=== PATIENT | female | born 1990 | race Caucasian/White ===

== ENCOUNTER → 2017-02-21 | Outpatient (REF) | payer OTHER ==
[2017-02-21 16:43] LABS: FREE T4 1.11 NG/DL (0.76-1.46)
== END ==
LOC: M LABDRAW1 11:19
PROVIDERS: ATTEND Physician Assistant Medical
DX: E55.9 Vitamin D deficiency, unspecified (principal)

== ENCOUNTER → 2017-12-05 | Outpatient (REF) | payer OTHER ==
[2017-12-05 12:49] LABS: TOTAL 25(OH) VITAMIN D 33.6 NG/ML (30.0-100.0)
[2017-12-05 12:56] LABS: FREE T4 0.77 NG/DL (0.76-1.46)
== END ==
LOC: M LABDRAW1 10:29
DX: E55.9 Vitamin D deficiency, unspecified (principal); E89.0 Postprocedural hypothyroidism

== ENCOUNTER → 2018-04-03 | Outpatient (CLI) | payer OTHER ==
[2018-04-03 17:03] LABS: HCG, SERUM QUANTITATIVE 2 MIU/ML
== END ==
LOC: M LAB 16:00
DX: E28.2 Polycystic ovarian syndrome (principal)
CPT/HCPCS: 84702

== ENCOUNTER → 2019-06-18 | Outpatient (CLI) | payer OTHER ==
[2019-06-18 12:09] LABS: FREE T4 1.26 NG/DL (0.76-1.46); THYROID STIMULATING HORMONE 2.12 uIU/ML (0.358-3.740)
[2019-06-18 13:12] LABS: TOTAL 25(OH) VITAMIN D 24.4 NG/ML (30.0-100.0)
== END ==
LOC: M LAB 11:01
PROVIDERS: ATTEND Nurse Practitioner Family
DX: E89.0 Postprocedural hypothyroidism (principal)

== ENCOUNTER → 2019-06-24 | Outpatient (CLI) | payer OTHER ==
[2019-06-24 07:44] LABS: HCG, SERUM QUANTITATIVE < 1.0 MIU/ML
--- NOTE | 2019-06-24 07:52 | REPVR ---
PROCEDURE INFORMATION: Exam: US Pelvis, Transvaginal Exam date and time: 06/24/2019 7:27 AM Age: 28 years old Clinical indication: Condition or disease; Other: Infertility TECHNIQUE: Imaging protocol: Real-time transvaginal pelvic ultrasound with image documentation. Transvaginal imaging was used for better evaluation of the endometrium and adnexa. COMPARISON: No relevant prior studies available. FINDINGS: Uterus/cervix: Uterus measures 7.8 x 4.3 x 5.2 cm. Endometrial stripe measures 6.1 mm. No uterine masses. Right adnexa: Right ovary measures 2.9 x 2.1 x 2.2 cm. Normal size and number of follicles. No masses. Normal vascular flow. Left adnexa: Left ovary measures 2.3 x 1.9 x 1.5 cm. Normal size and number of follicles. No masses. Normal vascular flow. Free fluid: No free fluid. IMPRESSION: Unremarkable pelvic ultrasound. Electronically signed by: Alexi Singletary On 06/24/2019 07:52:05 AM
[2019-06-24 10:58] LABS: ESTRADIOL < 19.0 PG/ML
== END ==
LOC: M RAD 06:46
PROVIDERS: ATTEND Obstetrics & Gynecology Reproductive Endocrinology
DX: Z31.41 Encounter for fertility testing (principal)

== ENCOUNTER → 2019-06-28 | Outpatient (CLI) | payer OTHER ==
--- NOTE | 2019-06-28 07:58 | REPVR ---
PROCEDURE INFORMATION: Exam: US Pelvis, Transvaginal Exam date and time: 06/28/19 (7:09am) Age: 28 years old Clinical indication: Screening exam. Follicle study. Infertility. TECHNIQUE: Imaging protocol: Real-time transvaginal pelvic ultrasound with image documentation. Transvaginal imaging was used for better evaluation of the endometrium and adnexa. COMPARISON: US PELVIS of 06/24/19 FINDINGS: The LMP is not provided. The uterus is normal in size and texture, measuring 6.7 x 3.8 x 5.0 cm in dimensions. No uterine mass is seen. The endometrium measures 5.4 mm in thickness. The right ovary measures 3.6 x 2.2 x 2.4 cm in size. The left ovary measures 2.1 x 1.6 x 1.9 cm in size. Multiple small bilateral ovarian follicles are present --- Maximal dimensions for the largest right ovarian follicles: 7-9 mm Maximal dimensions for the largest left ovarian follicles: 6-7 mm No free pelvic fluid is seen. No solid adnexal masses. IMPRESSION: No acute pathology. No solid pelvic mass. No free pelvic fluid. Multiple small bilateral ovarian follicles (see measurements above). Electronically signed by: Krystle Doyle On 06/28/2019 07:58:13 AM
[2019-06-28 10:54] LABS: ESTRADIOL 34.5 PG/ML; LUTEINIZING HORMONE 3.7 mIU/mL
== END ==
LOC: M RAD 06:39
PROVIDERS: ATTEND Obstetrics & Gynecology Reproductive Endocrinology
DX: Z31.41 Encounter for fertility testing (principal)

== ENCOUNTER → 2019-06-30 | Outpatient (CLI) | payer OTHER ==
[2019-06-30 09:22] LABS: ESTRADIOL 52.7 PG/ML
--- NOTE | 2019-06-30 09:50 | REP ---
Clinical: Infertility. Comparison: 06/28/2019. Technique: Transvaginal ultrasound examination Findings: Anteverted uterus measures 7.3 x 4.0 x 5.5 cm. Endometrial complex measures 5.9 mm thickness with trilaminar appearance. Right ovary measures 3.7 x 2.5 x 2.6 cm and includes 10 x 9 millimeter follicle and approximately 20 sub centimeter follicles between 3 and 9 mm.. Left ovary measures 2.9 x 1.7 x 2.1 cm and includes approximately 15 sub centimeter follicles between 3 and 7 mm. No pelvic free fluid. Impression: Primarily sub centimeter follicles noted bilaterally. Electronically Signed by Yevgeniy Riojas MD 06/30/2019 07:54 A
== END ==
LOC: M RAD 06:37
PROVIDERS: ATTEND Obstetrics & Gynecology Reproductive Endocrinology
DX: Z31.41 Encounter for fertility testing (principal)

== ENCOUNTER → 2019-07-02 | Outpatient (CLI) | payer OTHER ==
--- NOTE | 2019-07-02 09:13 | REP ---
Clinical: Infertility. Technique: Transvaginal ultrasound examination. Findings: Normal anteverted uterus measures 7.8 x 3.9 x 5.4 cm. The endometrial complex measures 7.1 mm thickness and has a relatively normal trilaminar appearance. No pelvic free fluid. Right ovary measures 4.3 x 2.5 x 2.8 cm and includes 10 x 6 mm and 10 x 9 mm follicles along with approximately 15 sub centimeter follicles between 2 and 8 mm. Left ovary measures 3.4 x 2.3 x 2.7 cm and includes 12 x 9 mm follicle along with approximately 12 sub centimeter follicles between 3 and 9 mm. Impression: Primarily sub centimeter follicles as noted above. Electronically Signed by Yevgeniy Riojas MD 07/02/2019 09:04 A
[2019-07-02 10:53] LABS: ESTRADIOL 41.4 PG/ML; LUTEINIZING HORMONE 4.1 mIU/mL
== END ==
LOC: M RAD 07:53
PROVIDERS: ATTEND Obstetrics & Gynecology Reproductive Endocrinology
DX: N97.9 Female infertility, unspecified (principal)

== ENCOUNTER → 2019-07-05 | Outpatient (CLI) | payer OTHER ==
[2019-07-05 09:41] LABS: ESTRADIOL 120.4 PG/ML; LUTEINIZING HORMONE 3.3 mIU/mL; PROGESTERONE 0.52 NG/ML
== END ==
LOC: M LAB 07:19
PROVIDERS: ATTEND Obstetrics & Gynecology Reproductive Endocrinology
DX: Z31.41 Encounter for fertility testing (principal)

== ENCOUNTER → 2019-07-07 | Outpatient (CLI) | payer OTHER ==
--- NOTE | 2019-07-07 08:35 | REP ---
Transvaginal pelvic sonography: History: Infertility study. Ovarian follicle evaluation. Findings: Uterine dimensions are normal 8.2 x 3.6 x 5.5 cm. Endometrial echo is at 1.2 cm thick. There is a small quantity of fluid in the endocervical canal. No focal uterine mass is seen. Overall transvaginal dimensions of the right ovary today are 4.4 x 2.9 x 3.3 cm. There are six follicles in the right ovary measuring greater than a centimeter as follows: 1.1 x 0.8, 1.3 x 0.8, 1.7 x 1.5, 1.2 x 0.5, 1.1 x 0.8, and 1.1 x 0.6 cm. In addition, the right ovary contains 22 follicles ranging in size from 0.3 0.9 cm. The overall dimensions of the left ovary today are 2.5 x 1.7 x 2.3 cm. There are two follicles greater than a centimeter in the left ovary as follows: 1.3 x 0.9 and 1.4 x 0.8 cm. In addition, the left ovary contains seven follicles ranging in size from 0.4-0.9 cm. Impression: Ovarian follicle study as above. Electronically Signed by Serge Jin MD 07/07/2019 08:26 A
[2019-07-07 10:31] LABS: ESTRADIOL 201.6 PG/ML; LUTEINIZING HORMONE 6.8 mIU/mL
== END ==
LOC: M RAD 07:14
PROVIDERS: ATTEND Obstetrics & Gynecology Reproductive Endocrinology
DX: Z31.41 Encounter for fertility testing (principal)

== ENCOUNTER → 2019-07-24 | Outpatient (CLI) | payer OTHER ==
[2019-07-24 10:34] LABS: HCG, SERUM QUANTITATIVE < 1.0 MIU/ML
[2019-07-24 13:47] LABS: ESTRADIOL < 19.0 PG/ML
== END ==
LOC: M WUC 08:17
PROVIDERS: ATTEND Obstetrics & Gynecology Reproductive Endocrinology
DX: Z31.41 Encounter for fertility testing (principal)

== ENCOUNTER → 2019-07-28 | Outpatient (CLI) | payer OTHER ==
[2019-07-28 09:21] LABS: ESTRADIOL 28.3 PG/ML; LUTEINIZING HORMONE 3.3 mIU/mL
--- NOTE | 2019-07-28 15:33 | REP ---
Transvaginal pelvic sonography: History: Fertility testing. Follicle study. Findings: Transvaginal sonography is performed. Uterine dimensions are 7.6 x 3.8 x 5.5 cm. Endometrial stripe is 0.7 cm. Nabothian cysts are noted. No free fluid or focal uterine mass is seen. Overall dimensions of the right ovary are 4.5 x 2.3 x 3.1 cm. There are five follicles in the right ovary measuring over a centimeter as follows: 1.3 x 0.4, 1.4 x 0.8, 1.1 x 0.8, 2.0 x 1.3, and 1.4 x 1.4 cm. In addition, the right ovary contains 17 follicles ranging in size from 0.2-0.8 cm. The overall dimensions of the left ovary are 3.6 x 2.6 x 2.0 cm. It contains a 1.2 x 1.0 cm follicle. No other follicles greater than a centimeter. There are 19 follicles in the left ovary ranging in size from 0.3-0.8 cm. Impression: Ovarian follicle study as above. Electronically Signed by Serge Jin MD 07/28/2019 08:15 A
== END ==
LOC: M RAD 06:56
PROVIDERS: ATTEND Obstetrics & Gynecology Reproductive Endocrinology
DX: Z31.41 Encounter for fertility testing (principal)

== ENCOUNTER → 2019-12-09 | Outpatient (CLI) | payer OTHER ==
[2020-01-16 10:51] LABS: PROGESTERONE 10.22 NG/ML
== END ==
LOC: M LAB 17:10
PROVIDERS: ATTEND Obstetrics & Gynecology Reproductive Endocrinology
DX: Z31.41 Encounter for fertility testing (principal)

== ENCOUNTER → 2020-01-18 | Outpatient (REF) | payer OTHER ==
[2020-01-18 15:06] LABS: BASO % 0.2 % (0.0-1.0); EOS % 0.2 % (0.0-3.0); HEMATOCRIT 41.2 % (36.0-47.0); HEMOGLOBIN 13.5 g/dl (12.0-15.5); LYMPH # 2.4 10^3/uL (1.5-5.0); LYMPH % 22.9 % (24.0-44.0); MEAN CORPUSCULAR HEMOGLOBIN 28.4 pg (27.0-33.0); MEAN CORPUSCULAR HGB CONC 32.8 g/dl (32.0-36.5); MEAN CORPUSCULAR VOLUME 86.6 fl (80.0-96.0); MONO # 0.6 10^3/uL (0.0-0.8); MONO % 5.5 % (0.0-5.0); NEUTROPHILS # 7.3 10^3/uL (1.5-8.5); NEUTROPHILS % 70.8 % (36.0-66.0); PLATELET COUNT, AUTOMATED 270 10^3/uL (150-450); RED BLOOD COUNT 4.76 10^6/uL (4.00-5.40); WHITE BLOOD COUNT 10.3 10^3/uL (4.0-10.0)
[2020-01-18 15:32] LABS: FREE T4 1.08 NG/DL (0.76-1.46)
[2020-01-18 15:46] LABS: HEPATITIS B SURFACE ANTIGEN NEGATIVE (NEGATIVE)
[2020-01-18 16:14] LABS: HEPATITIS C VIRUS ABY INDEX 0.1 INDEX (<0.8)
[2020-01-18 16:15] LABS: HIV 1&2 SCREEN CENTAUR NEGATIVE (NEGATIVE)
[2020-01-18 16:46] LABS: CHLAMYDIA DNA AMPLIFICATION NEGATIVE (NEGATIVE); GC DNA AMPLIFICATION NEGATIVE (NEGATIVE)
== END ==
LOC: M SFHCWAGY 13:33
PROVIDERS: ATTEND Specialist
DX: Z34.81 Encounter for supervision of other normal pregnancy, first trimester (principal); Z3A.00 Weeks of gestation of pregnancy not specified

== ENCOUNTER → 2020-01-24 | Outpatient (CLI) | payer OTHER | LOC: M PLALAB 10:05 | PROVIDERS: ATTEND Specialist | DX: Z36.89 Encounter for other specified antenatal screening (principal) ==

== ENCOUNTER → 2020-03-22 | Outpatient (CLI) | payer OTHER ==
--- NOTE | 2020-03-23 08:19 | REP ---
INDICATION: F/U ANATOMY COMPARISON: Prior report examination from outside institution. TECHNIQUE: Transabdominal obstetrical ultrasound with color Doppler evaluation. FINDINGS: Examination demonstrates a single live intrauterine in transverse (head to maternal right) presentation. motion is identified by technologist. Placenta is noted posterior and grade 0 without evidence for placenta previa or abruption. Amniotic fluid volume is normal. Cervix measures 4.0 cm in length and appears closed.. Gestational age by LMP 20 weeks 1 day with LORA 08/08/2020. Gestational age by current measurements 20 weeks 1 day with LORA 08/08/2020. FHR equals 142 beats per minute. Estimated weight 333 grams (47thpercentile). Anatomical assessment demonstrates normal structures including cranium, cavum, cerebellum/posterior fossa, lungs, diaphragm, stomach, cord insertion/three-vessel cord, kidneys/bladder, spine, and extremities. Small choroid plexus cyst measuring up to 5 mm diameter. IMPRESSION: Continued limited evaluation of the facial features. Current examination demonstrates small choroid plexus cyst. <Electronically signed by Yevgeniy Riojas > 03/23/20 [id number]
== END ==
LOC: M WHC 13:58
PROVIDERS: ATTEND Advanced Practice Midwife
DX: Z36.2 Encounter for other antenatal screening follow-up (principal); Z3A.19 19 weeks gestation of pregnancy

== ENCOUNTER → 2020-04-24 | Outpatient (CLI) | payer OTHER ==
--- NOTE | 2020-04-24 16:28 | REP ---
INDICATION: F/U ANATOMY. COMPARISON: 03/22/2020. TECHNIQUE: Real-time sonographic evaluation of the gravid uterus performed. FINDINGS: Estimated gestational age is24 weeks 6 days, EDC 08/08/2020. Today's measurements indicate appropriate growth. Presentation: Transverse head maternal left side Placenta posterior, grade 0, without evidence of placenta previa. heart rate is recorded at 147 beats per minute. Amniotic fluid is subjectively normal. Closed cervical length is measured at 3.6 cm. Biometry chart: BPD: 61 mm, weeks 5 days, 49th percentile. HC: 227 mm, 24 weeks 5 days, 49th percentile AC: 202 mm, 24 weeks 6 days, 50th percentile Femur length: 44 mm, 24 weeks 3 days, 43rd percentile HC to AC ratio: 1.13, normal range 1.02-1.21. Estimated weight: 723g, 35th percentile. And today's exam the previously noted choroid plexus cyst appears to have resolved. Facial structures are visualized and are grossly unremarkable. Once again four-chamber heart and ventricular outflow tracts are not well seen due to position. Other anatomical structures were seen on the prior study. IMPRESSION: Viable single intrauterine gestation as above. <Electronically signed by Jean Pierre Valle > 04/24/20 [id number]
== END ==
LOC: M WHC 14:08
PROVIDERS: ATTEND Advanced Practice Midwife
DX: Z36.89 Encounter for other specified antenatal screening (principal); Z3A.24 24 weeks gestation of pregnancy

== ENCOUNTER → 2020-05-11 | Outpatient (REF) | payer OTHER ==
[2020-05-11 13:23] LABS: HEMATOCRIT 35.1 % (36.0-47.0); HEMOGLOBIN 10.9 g/dl (12.0-15.5); MEAN CORPUSCULAR HEMOGLOBIN 26.8 pg (27.0-33.0); MEAN CORPUSCULAR HGB CONC 31.1 g/dl (32.0-36.5); MEAN CORPUSCULAR VOLUME 86.5 fl (80.0-96.0); PLATELET COUNT, AUTOMATED 236 10^3/uL (150-450); RED BLOOD COUNT 4.06 10^6/uL (4.00-5.40)
[2020-05-11 13:51] LABS: ALT/SGPT 19 U/L (12-78); BILIRUBIN,TOTAL 0.2 MG/DL (0.2-1.0); CREATININE FOR GFR 0.64 MG/DL (0.55-1.30); GLOMERULAR FILTRATION RATE > 60.0 (>60); LDH LACTATE DEHYDROGENASE 158 U/L (84-246); URIC ACID 4.4 MG/DL (2.6-6.0)
[2020-05-11 13:52] LABS: CREATININE,RANDOM URINE 68.1 MG/DL; TOTAL PROTEIN,RANDOM URINE 6.9 MG/DL (0.0-12.0)
== END ==
LOC: M PLALAB 09:00
PROVIDERS: ATTEND Advanced Practice Midwife
DX: Z34.82 Encounter for supervision of other normal pregnancy, second trimester (principal); Z3A.23 23 weeks gestation of pregnancy
CPT/HCPCS: 36415; 82247; 82565; 82570; 82950; 83615; 84156; 84450; 84460; 84550; 85027; 86850; 86900; 86901; G0463

== ENCOUNTER → 2020-05-30 | Outpatient (CLI) | payer OTHER ==
--- NOTE | 2020-05-31 08:56 | REP ---
INDICATION: F/U ANATOMY COMPARISON: 04/24/2020 TECHNIQUE: Transabdominal obstetrical ultrasound with color Doppler evaluation. FINDINGS: Examination demonstrates a single live intrauterine in cephalic presentation. motion is identified by technologist. Placenta is noted posterior and grade 2 without evidence for placenta previa or abruption. Amniotic fluid volume is normal. Cervix appears closed. KODY: 19.1 cm. Gestational age by LMP 30 weeks 0 days with LORA 08/08/2020. Gestational age by current measurements 30 weeks 4 days with LORA 08/04/2020. FHR equals 129 beats per minute. Estimated weight 1596 grams (59thpercentile). Anatomical assessment demonstrates normal four-chamber heart and cardiac ventricular outflow tract. IMPRESSION: Single live intrauterine in cephalic presentation demonstrating appropriate estimated weight and growth. In conjunction with prior examination anatomical assessment is complete and normal. <Electronically signed by Yevgeniy Riojas > 05/31/20 [id number]
== END ==
LOC: M WHC 13:28
PROVIDERS: ATTEND Obstetrics & Gynecology
DX: Z34.93 Encounter for supervision of normal pregnancy, unspecified, third trimester (principal); Z3A.30 30 weeks gestation of pregnancy
CPT/HCPCS: 76816; G0463

== ENCOUNTER → 2020-07-14 | Outpatient (REF) | payer OTHER | LOC: M PLALAB 13:06 | PROVIDERS: ATTEND Obstetrics & Gynecology | DX: Z34.93 Encounter for supervision of normal pregnancy, unspecified, third trimester (principal); Z3A.36 36 weeks gestation of pregnancy; Z53.9 Procedure and treatment not carried out, unspecified reason ==

== ENCOUNTER → 2020-07-17 | Outpatient (REF) | payer OTHER ==
[~2020-07-17] MED LIST: DOK1CAP7 PO; IBUP80TA PO; IRON27TA2 PO; LEVO150T7 PO; METF-877 PO; PERCOCET PO; PREN1CHW PO; VITAD400CA FT
== END ==
LOC: M SFHCWAGY 13:36
PROVIDERS: ATTEND Obstetrics & Gynecology
DX: Z36.89 Encounter for other specified antenatal screening (principal); Z3A.36 36 weeks gestation of pregnancy
CPT/HCPCS: 87081; 87186; G0463

== ENCOUNTER → 2020-07-17 | Outpatient (CLI) | payer OTHER | LOC: M WHC 10:18 | PROVIDERS: ATTEND Obstetrics & Gynecology | DX: Z53.9 Procedure and treatment not carried out, unspecified reason (principal) ==

== ENCOUNTER → 2020-08-01 | Outpatient (CLI) | payer OTHER ==
--- NOTE | 2020-08-01 16:01 | REP ---
INDICATION: HYPOTHYROID,GROWTH. COMPARISON: 05/30/2020. TECHNIQUE: Multiple sonographic images of the gravid uterus. FINDINGS: There is a single intrauterine gestation in a transverse lie with the head to the maternal right. 1. The placenta is fundal with grade 3 maturity. There is no previa. The umbilical cord inserts centrally onto the placenta. There is a normal 3 vessel cord. 2. heart rate is 150 beats per minute. Amniotic fluid index is 23.2. Normal is 7.2-22.7. Cervix measures 4.2 cm. 3. The composite ultrasound gestational age by today's study is 38 weeks 5 days with an LORA of 08/10/2020. Gestational age by the 1st ultrasound is 39 weeks 0 days with an LORA of 08/08/2020. Gestational age by LMP is 39 weeks 0 days with an LORA of 08/08/2020. 4. Estimated weight is 3640 g/8 lb, 0 oz. This is the 69th percentile for 39 weeks 0 days. IMPRESSION: size and dates as discussed above. <Electronically signed by Jean Pierre Silvestre > 08/01/20 [id number]
== END ==
LOC: M WHC 12:50
PROVIDERS: ATTEND Obstetrics & Gynecology
DX: O99.213 Obesity complicating pregnancy, third trimester (principal); Z3A.39 39 weeks gestation of pregnancy; E66.9 Obesity, unspecified; O99.283 Endocrine, nutritional and metabolic diseases complicating pregnancy, third trimester; E03.9 Hypothyroidism, unspecified
CPT/HCPCS: 76815; G0463

== ENCOUNTER 2020-08-03 06:24 | Inpatient (IN) | payer OTHER ==
[~2020-08-03] VITALS: Ht 170.2 cm; Wt 132.2 kg
[2020-08-03] VITALS (8 sets, daily range): BP systolic 120–147; BP diastolic 58–78
[2020-08-03] MEDS ORDERED: LEVO150T7 PO (07:11)
[2020-08-03] MEDS ORDERED: PREN1CHW PO (07:11)
[2020-08-03] MEDS ORDERED: VITAD400CA FT (07:11)
[2020-08-03] MEDS ORDERED: IRON27TA2 PO (07:11)
[2020-08-03] MEDS ORDERED: METF-877 PO (07:11)
[2020-08-03] MEDS ORDERED: LACTATED RINGER'S 1000 ML IV ONE (07:20)
[2020-08-03] MEDS ORDERED: LR 1,000 ML IV SCH ×2 (07:20→07:59)
[2020-08-03 07:56] LABS: HEMATOCRIT 35.9 % (36.0-47.0); HEMOGLOBIN 11.6 g/dl (12.0-15.5); MEAN CORPUSCULAR HEMOGLOBIN 27.2 pg (27.0-33.0); MEAN CORPUSCULAR HGB CONC 32.3 g/dl (32.0-36.5); MEAN CORPUSCULAR VOLUME 84.3 fl (80.0-96.0); PLATELET COUNT, AUTOMATED 193 10^3/uL (150-450); RED BLOOD COUNT 4.26 10^6/uL (4.00-5.40); WHITE BLOOD COUNT 8.9 10^3/uL (4.0-10.0)
[2020-08-03] MEDS ORDERED: LACTATED RINGER'S 1000 ML IV STA (07:59)
[2020-08-03] MEDS ORDERED: CARBOPROST TROMETHAMINE 250 MCG/ML AMP IM PRN (08:00)
[2020-08-03] MEDS ORDERED: TRANEXAMIC ACID INJection 1,000 MG in NS 100 ML IV PRN (08:00)
[2020-08-03] MEDS ORDERED: ceFAZolin SOD 3 GM IV Place Holder IV ONE (08:00)
[2020-08-03] MEDS ORDERED: METHYLERGONOVINE MALEATE 0.2 MG/ML VIAL (J2210) IM PRN (08:00)
[2020-08-03] MEDS ORDERED: OXYTOCIN DRIP 30 UNITS in IV 1 EA IV PRN (08:00)
[2020-08-03] MEDS ORDERED: BICITRA 30ML SOLN UDC PO ONE (08:00)
[2020-08-03] MEDS ORDERED: ceFAZolin SOD 2 GM in IV 1 EA IV ONE (08:10)
[2020-08-03] MEDS ORDERED: ceFAZolin SOD 1 GM in D5W MINI-BAG PLUS 50 ML IV ONE (08:10)
--- NOTE | 2020-08-03 08:22 | HPEPDOC ---
Obstetrical History & Physical General Date of Admission Aug 03, 2020 at 06:24 History of Present Illness 29-year-old G4, P1021 at 39+2 weeks gestation. Presents for a scheduled repeat low transverse section. Patient has decided against a trial of labor after (history of 1 previous , low transverse). She originally had the desire of achieving a . Denies any uterine contractions, loss of fluid or vaginal bleeding. Reports regular movement. ROS: no JAIN, cp, sob, fever/chills/nausea/vomiting. course: 1. History of prior low transverse section; patient decided yesterday to forego her original plan of trial of labor 2. Polyhydramnios 3. PCOS; metformin 1500 mg daily ; GDM screening was negative 4. Hypothyroidism 5. 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 9 oz. 38 weeks gestational diabetes, gestational hypertension primary low transverse section for suspected macrosomia and arrest of dilation. G2 spontaneous . G3, spontaneous . G4, current Sochx: No tobacco, alcohol or drug use FamHx: Hypertension, hyperlipidemia, diabetes, thyroid disease; cervical, ovarian, long, and lymphoma cancer labs: Blood type A+, antibody screen negative, HepBsAg neg, HIV neg, rubella immune, Hep C antibody negative, RPR nonreactive, CT/GC neg, urine culture negative, 1 hour glucose challenge test 96, GBS positive imaging: no anomalies or placental abnormalities. Most recent 08/01/20: Amniotic fluid index 23.2 cm, 69th percentile EFW Past Medical History Allergies Coded Allergies: No Known Drug Allergies (Verified Allergy, Unknown, 08/03/20) Medications Scheduled Ferrous Gluconate (Iron) 236 Mg Tablet, 1 TAB PO DAILY Levothyroxine Sodium (Levothyroxine Sodium) 150 Mcg Tablet, 150 MCG PO DAILY Comb No.42/Folic Acid (Prena1 Chew Tablet) 1.4 Mg Tab.ch.bph, 1 TAB PO DAILY Miscellaneous Medications Metformin HCl (Metformin HCl) 1,000 Mg Tablet, 1,500 MG PO Vitamin D (Vitamin D3) 10 Mcg Tablet, 400 MCG FT Physical Examination Physical Examination GENERAL: Alert and oriented times three. BREAST: . ABDOMEN: Gravid and non-tender to touch. FETUS: Is vertex (VTX) by sterile vaginal examination (SVE), fetus is vertex (VT X) by Syd. HEART RATE: Regular rate and rhythm. LUNGS: Clear to auscultation (CTA). EXTREMITIES: No edema. No clonus. Deep tendon reflexes (DTRs) + . Vital Signs/I&O Vital Signs Date Time Temp Pulse Resp B/P (MAP) Pulse Ox O2 Delivery O2 Flow Rate FiO2 08/03/20 07:40 98.0 93 18 120/66 (84) Laboratory Data 24H LABS Laboratory Tests 2 08/03/20 06:45: Coronavirus (COVID-19)(PCR) NEGATIVE 08/03/20 07:39: Nucleated Red Blood Cells % (auto) 0.0 CBC/BMP Laboratory Tests 08/03/20 07:39 Assessment/Plan Assessment 29-year-old G4, P1, 0-1 at 39+2 weeks gestation. Desiring elective repeat low transverse section. Borderline polyhydramnios. Reassuring maternal and status. Plan Routine preoperative admission and orders Preparations for the OR being made 3 g IV Ancef for prophylactic antibiotics. BMI of 45 Risks, benefits, indications and alternatives of the planned surgical procedure were reviewed and informed consent was obtained. JOANIE ARCE DO Aug 03, 2020 08:22
[2020-08-03] MEDS ORDERED: NALBUPHINE HCL 10 MG/ML AMP (J2300) IV PRN ×2 (08:48→10:20)
[2020-08-03] MEDS ORDERED: ONDANSETRON 4MG/2ML VIAL IV PRN ×3 (08:48→10:20)
[2020-08-03] MEDS ORDERED: METOCLOPRAMIDE INJ 10MG/2ML VIAL (J2765 PER 1) IV PRN (08:48)
[2020-08-03] MEDS ORDERED: NALOXONE INJ 0.4MG/1ML VIAL (J2310 PER 1MG) IV PRN ×2 (08:48)
[2020-08-03] MEDS ORDERED: diphenhydrAMINE 50MG/ML VIAL (J1200) IV PRN (08:48)
[2020-08-03] MEDS ORDERED: PHENYLephrine 500MCG 5ML (100MCG/ML) SYRINGE As Ordered ONE (08:57)
[2020-08-03] MEDS ORDERED: MORPHINE PRES-FREE INJ 10 MG/10 ML VIAL (J2274) As Ordered ONE (08:57)
[2020-08-03] MEDS ORDERED: OXYTOCIN 30 UNITS IN 0.9% NaCl 500ML IV BAG (J2590) As Ordered ONE ×2 (08:57→10:44)
[2020-08-03] MEDS ORDERED: LIDOCAINE 2% 100MG/5ML SDV (FOR ANES.) As Ordered ONE (08:57)
[2020-08-03] MEDS ORDERED: ONDANSETRON 4MG/2ML VIAL As Ordered ONE (08:57)
[2020-08-03] MEDS ORDERED: MEASLES,MUMPS,RUBELLA VACCINE INJ (MMR-II) (90707) SC SCH (10:05)
[2020-08-03] MEDS ORDERED: RHOGAM 300 MCG (1500 IU) INJ (J2790) IM SCH (10:05)
[2020-08-03] MEDS ORDERED: OXYTOCIN DRIP 30 UNITS in IV 1 EA IV SCH (10:05)
[2020-08-03] MEDS ORDERED: PERCOCET 5MG/325MG TAB PO PRN ×2 (10:05)
[2020-08-03] MEDS ORDERED: oxyCODONE 5MG TAB PO PRN (10:20)
[2020-08-03] MEDS ORDERED: MEPERIDINE INJ 25 MG/ML VIAL (J2175) IV PRN (10:20)
[2020-08-03] MEDS ORDERED: fentaNYL 100 MCG/2 ML INJECTION (J3010) IV PRN (10:20)
[2020-08-03] MEDS ORDERED: HYDROMORPHONE HCL 0.5 MG/ 0.5 ML SYRINGE (J1170 PER 1) IV PRN (10:20)
--- NOTE | 2020-08-03 10:22 | ROOPDOC ---
[facility] Report Of Operation Report of Operation DATE OF PROCEDURE: 08/03/2020 PREPROCEDURE DIAGNOSES: 39+2 weeks gestation, history of prior low transverse section, polyhydramnios, obesity POSTPROCEDURE DIAGNOSES: Same PROCEDURE: Elective repeat low transverse section SURGEON: Jose Miguel Sierra DO FACOG CORRECTIONAL OFFICER SERGEANT: None ANESTHESIA: Spinal ESTIMATED BLOOD LOSS: 500 mL. IV FLUIDS: 800 mL LR URINE OUTPUT: 100 mL COMPLICATIONS: None. PREOPERATIVE ANTIBIOTICS: Ancef 3g IV x 1. COMPLICATIONS: none DATA: Apgars 8 and 9. Birthweight 3850 g, 8 lbs 8 oz. SPECIMENS: none PRIMARY INDICATION FOR : History of low transverse section 1 DESCRIPTION OF PROCEDURE: The patient was counseled on the risks, benefits, indications and alternatives of the procedure. Informed consent was obtained. She was taken to the operating room with IV running and placed on the operating table in the dorsal supine position with a leftward tilt. Regional anesthesia was found to be adequate. Sequential compression devices were placed on the lower extremities. A Villalobos catheter was placed under sterile conditions. She was prepared and draped in normal sterile fashion. A time out was performed per protocol. Regional anesthesia was again found to be adequate. A Pfannenstiel skin incision was made with the 10 blade. The 10 blade was used to dissect down to the level of the rectus sheath fascia. The rectus sheath pressure was incised midline and this was extended bilaterally with Gonzalez scissors , and manual stretch. The rectus muscle bellies were dissected off the rectus sheath fascia superiorly and inferiorly using both sharp and blunt dissection. The midline was identified. The peritoneum was identified and entered digitally. The peritoneal opening was extended with manual stretch. The Mobius retractor was placed. The vesicouterine peritoneum was dissected with Metzenbaum scissors to create the bladder flap. A low transverse uterine incision was made with the 10 blade. This was extended with manual stretch. The amniotic sac was punctured, and clear fluid was noted. The baby delivered through the hysterotomy without difficulty. The cord was doubly clamped and cut, and the baby was handed off to awaiting care. data shown above. The placenta was removed manually. The intrauterine cavity was cleared of all clot and debris. The hysterotomy was closed with 0 Vicryl in running locked fashion. This was reinforced with a second imbricating layer using 0 Monocryl in running fashion. Excellent hemostasis of the hysterotomy was noted. The pelvis was irrigated and the fluid suctioned. The Mobius retractor was removed. The peritoneum was closed with 3-0 Vicryl running fashion. The rectus muscle bellies were reapproximated with interrupted stitches using 3-0 Vicryl. The rectus muscles bellies were hemostatic. The rectus sheath fascia was closed with 0 Vicryl running fashion. The subcutaneous layer was irrigated and the fluid suctioned. Small bleeding vessels were cauterized with Bovie. Excellent hemostasis was noted. The subcutaneous layer was reapproximated with 3-0 Vicryl running fashion. Skin was closed with 3-0 Monocryl in subcuticular fashion. An Optifoam bandage was placed over the closed incision. Sponge, needle and instrument counts were correct per protocol throughout the procedure. The patient tolerated the entire procedure very well. She was transferred to the PACU in stable condition. DO JULIETA Brewer JONATHAN R. DO Aug 03, 2020 10:22
[2020-08-03] MEDS ORDERED: PERCOCET PO (10:24)
[2020-08-03] MEDS ORDERED: DOK1CAP7 PO (10:24)
[2020-08-03] MEDS ORDERED: IBUP80TA PO (10:24)
[2020-08-03] MEDS ORDERED: KETOROLAC 30 MG/ML 1ML VIAL IV SCH (11:45)
[2020-08-03] MEDS: LR 1,000 ML IV SCH ×2 (12:07→18:05)
[2020-08-03] MEDS: KETOROLAC 30 MG/ML 1ML VIAL IV SCH ×3 (12:07→23:30)
[2020-08-03] MEDS: DOCUSATE SODIUM 100MG CAPSULE PO SCH (20:28)
[2020-08-04] MEDS: LR 1,000 ML IV SCH ×2 (02:05→10:05)
[2020-08-04] MEDS: KETOROLAC 30 MG/ML 1ML VIAL IV SCH (05:37)
[2020-08-04 06:00] VITALS: BP 135/68
[2020-08-04 07:29] LABS: HEMATOCRIT 32.9 % (36.0-47.0); HEMOGLOBIN 10.6 g/dl (12.0-15.5); MEAN CORPUSCULAR HEMOGLOBIN 27.1 pg (27.0-33.0); MEAN CORPUSCULAR HGB CONC 32.2 g/dl (32.0-36.5); MEAN CORPUSCULAR VOLUME 84.1 fl (80.0-96.0); PLATELET COUNT, AUTOMATED 171 10^3/uL (150-450); RED BLOOD COUNT 3.91 10^6/uL (4.00-5.40); WHITE BLOOD COUNT 8.9 10^3/uL (4.0-10.0)
--- NOTE | 2020-08-04 08:02 | IPNPDOC ---
Progress Note Date of Service: Aug 04, 2020 Day#: 1 Progress Note SUBJECT: Status post RLTCS She has been ambulating, voiding spontaneously without issue and tolerating regular diet. Lochia decreasing/minimal. Pain is well-controlled. Denies headache, visual changes, right upper quadrant pain, shortness breath or chest pain. OBJECTIVE: VITAL SIGNS: Within normal limits, afebrile. Normal UOP Alert and oriented times three. Abdomen: Fundus firm at U-2. Soft, NTTP. ASSESSMENT: Status post RLTCS. Vitals within normal limits, afebrile, hemodynamically stable with no evidence of infection. PLAN: Discharge to home tomorrow Tylenol and Motrin for pain. Routine / postop instructions/precautions reviewed. Routine PP visit in 6 weeks in clinic. VS, I&O, 24H, Fishbone Vital Signs/I&O Vital Signs Date Time Temp Pulse Resp B/P (MAP) Pulse Ox O2 Delivery O2 Flow Rate FiO2 08/04/20 06:00 96.9 78 18 135/68 (90) 98 Room Air I&O- Last 24 Hours up to 6 AM 08/04/20 05:59 Intake Total 1800 ml Output Total 1225 ml Balance 575 ml Laboratory Data 24H LABS Laboratory Tests 2 08/03/20 09:46: Serology Scanned Report Hepatitis B Testing 08/04/20 06:47: Nucleated Red Blood Cells % (auto) 0.0 CBC/BMP Laboratory Tests 08/04/20 06:47 JOANIE ARCE DO Aug 04, 2020 08:01
[2020-08-04] MEDS: DOCUSATE SODIUM 100MG CAPSULE PO SCH ×2 (09:09→21:15)
[2020-08-04] MEDS: PRENATAL VITAMINS CHEWABLE TABLET PO SCH (09:15)
[2020-08-04 10:00] VITALS: BP 128/56
[2020-08-04] MEDS: IBUPROFEN 800 MG TAB PO SCH ×2 (13:00→21:16)
[2020-08-04] MEDS: SIMETHICONE 80MG CHEW TAB PO PRN ×2 (13:00→19:40)
[2020-08-04 14:00] VITALS: BP 128/65
[2020-08-04 18:00] VITALS: BP 122/71
[2020-08-04] MEDS: ACETAMINOPHEN 500 MG TAB PO PRN (18:39)
[2020-08-04 22:00] VITALS: BP 131/58
[2020-08-05] MEDS: ACETAMINOPHEN 500 MG TAB PO PRN (01:02)
[2020-08-05 02:00] VITALS: BP 137/70
[2020-08-05 06:00] VITALS: BP 133/64
[2020-08-05] MEDS ORDERED: LEVOTHYROXINE 150MCG TABLET (0.15MG) PO SCH (06:00)
[2020-08-05] MEDS: IBUPROFEN 800 MG TAB PO SCH ×2 (06:00→14:00)
--- NOTE | 2020-08-05 08:09 | DS.PDOC ---
Discharge Summary General Date of Admission Aug 03, 2020 at 06:24 Date of Discharge August 05, 2020 Discharge Summary PROCEDURES PERFORMED DURING STAY: Repeat at term ADMITTING DIAGNOSES: 1. Prior section 2. Unstable lie 3. Hydramnios DISCHARGE DIAGNOSES: 1. Repeat section at term COMPLICATIONS/CHIEF COMPLAINT: Unstable Lie, 39.2 Weeks. HISTORY OF PRESENT ILLNESS: 29yo G4 now para 2 admitted for repeat section. She was previously interested in TOLAC but due to hydramnios and unstable lie decided upon repeat section HOSPITAL COURSE: Uncomplicated. Ambulating, tolerating diet. Voiding and bowels have moved. DISCHARGE MEDICATIONS: Please see below. ALLERGIES: Please see below. PHYSICAL EXAMINATION ON DISCHARGE: VITAL SIGNS: Please see below. GENERAL: Alert, no distress. Adequate pain management HEENT: WNL NECK: Supple CARDIOVASCULAR EXAMINATION: Normotensive, HRR RESPIRATORY EXAMINATION: Clear and unlabored ABDOMINAL EXAMINATION: Fundus firm. Dressing dry, intact EXTREMITIES: Equal strength and motion SKIN: Intact NEUROLOGICAL EXAMINATION: Grossly intact PSYCHIATRIC EXAMINATION: Appropriate LABORATORY DATA: Please see below. PROGNOSIS: Good ACTIVITY: As tolerated. Pelvic rest DIET: As tolerated DISCHARGE PLAN: Home today. DISPOSITION: Home DISCHARGE INSTRUCTIONS: 1. Routine care. Pelvic rest. Continue vitamins. Medications as prescribed. Remove dressing day 5. Call with fever, nausea, vomiting chills, foul wound exudate, foul lochia. Return to office 2 wks and 6 wks DISCHARGE CONDITION: Stable TIME SPENT ON DISCHARGE: Greater than 10 minutes. Vital Signs/I&Os Vital Signs Date Time Temp Pulse Resp B/P (MAP) Pulse Ox O2 Delivery O2 Flow Rate FiO2 08/05/20 06:00 97.9 68 18 133/64 (87) 98 Room Air Discharge Medications Scheduled Docusate Sodium (Dok) 100 Mg Capsule, 100 MG PO BID Ferrous Gluconate (Iron) 236 Mg Tablet, 1 TAB PO DAILY, (Reported) Ibuprofen (Ibuprofen) 800 Mg Tablet, 800 MG PO Q8H Levothyroxine Sodium (Levothyroxine Sodium) 150 Mcg Tablet, 150 MCG PO DAILY, (Reported) Comb No.42/Folic Acid (Prena1 Chew Tablet) 1.4 Mg Tab.ch.bph, 1 TAB PO DAILY, (Reported) Scheduled PRN Oxycodone/Acetaminophen (Oxycodone-Acetaminophen 5-325) 1 Each Tablet, 1 TAB PO Q4H PRN for MILD/MODERATE PAIN (PS 1-7) Miscellaneous Medications Metformin HCl (Metformin HCl) 1,000 Mg Tablet, 1,500 MG PO, (Reported) Vitamin D (Vitamin D3) 10 Mcg Tablet, 400 MCG FT, (Reported) Allergies Coded Allergies: No Known Drug Allergies (Verified Allergy, Unknown, 08/03/20) Marietta Oneal CNM Aug 05, 2020 07:57
[2020-08-05] MEDS: DOCUSATE SODIUM 100MG CAPSULE PO SCH (09:11)
[2020-08-05] MEDS: PRENATAL VITAMINS CHEWABLE TABLET PO SCH (09:11)
[2020-08-05 09:46] VITALS: BP 121/69
== END 2020-08-05 13:55 | disposition home or self-care (01) | DRG 773 ==
LOC: M LDI 06:24 → M OBS 11:17
PROVIDERS: ADMIT Obstetrics & Gynecology; ATTEND Obstetrics & Gynecology
PROC: 10D00Z1 Extraction of Products of Conception, Low, Open Approach (ICD-10-PCS; principal; 2020-08-03 08:30)
DX: O34.211 Maternal care for low transverse scar from previous cesarean delivery (principal); Z3A.39 39 weeks gestation of pregnancy; Z37.0 Single live birth; O40.3XX0 Polyhydramnios, third trimester, not applicable or unspecified; O99.284 Endocrine, nutritional and metabolic diseases complicating childbirth; E28.2 Polycystic ovarian syndrome; E03.9 Hypothyroidism, unspecified; O99.214 Obesity complicating childbirth; E66.9 Obesity, unspecified

== ENCOUNTER → 2020-12-04 | Outpatient (REF) | payer OTHER | LOC: M SFHCWAGY 19:27 | PROVIDERS: ATTEND Obstetrics & Gynecology | DX: Z12.4 Encounter for screening for malignant neoplasm of cervix (principal) ==

== ENCOUNTER → 2020-12-06 | Outpatient (CLI) | payer OTHER ==
--- NOTE | 2020-12-06 16:07 | REP ---
INDICATION: N93.9 AUB. COMPARISON: EV probe ultrasound 07/28/2019 TECHNIQUE: Transabdominal and endovaginal probes were utilized with color and Doppler imaging of the adnexa. FINDINGS: Bladder measured 7.5 x 6.7 x 5.4 cm. Uterus is anteverted. It measures 6.5 x 3.7 x 5.1 cm. Central echogenic stripe shows endometrial thickness of 5 mm with a normal 3 line appearance on Ev probe. No fluid in the endometrial cavity or endocervical canal. No fluid in the cul-de-sac. No uterine mass or contour abnormality. The right ovary is 3.6 x 2.2 x 2.4 cm. Shows no mass or cyst. There are several subcentimeter follicles, most of them arrayed peripherally. No adjacent fluid to that ovary. Doppler tracing shows resistive index 0.53 and normal color flow in the ovary. The left ovary is 2.4 x 1.5 x 3 cm. There are several subcentimeter follicles, also mostly peripheral. Doppler tracing shows resistive index of 0.62 and there is normal color flow within the ovary. Neither ovary shows torsion. No adjacent fluid to the left ovary. IMPRESSION: 1. Anteverted uterus with normal uterine contour, size and echotexture. Normal central endometrial stripe. 2. Both ovaries symmetric in size with multiple peripheral follicles but with normal Doppler tracings and color flow no fluid in the cul-de-sac or adjacent either ovary. Negative ultrasound. <Electronically signed by Luis Figueroa > 12/06/20 [id number]
== END ==
LOC: M WHC 14:00
PROVIDERS: ATTEND Obstetrics & Gynecology
DX: N93.9 Abnormal uterine and vaginal bleeding, unspecified (principal)

== ENCOUNTER → 2021-07-06 | Outpatient (CLI) | payer OTHER ==
[~2021-07-06] MED LIST changes: +DOK1CAP4 PO; -DOK1CAP7 PO
[2021-07-06 12:22] LABS: FREE T3 2.9 PG/ML (2.2-4.0); FREE T4 0.83 NG/DL (0.76-1.46); THYROID STIMULATING HORMONE 0.993 uIU/ML (0.358-3.740)
== END ==
LOC: M LAB 11:06
PROVIDERS: ATTEND Registered Nurse
DX: R00.0 Tachycardia, unspecified (principal)

== ENCOUNTER → 2021-09-07 | Outpatient (CLI) | payer OTHER ==
[2021-09-07 18:48] LABS: FREE T4 0.8 NG/DL (0.76-1.46); THYROID STIMULATING HORMONE 1.3 uIU/ML (0.358-3.740)
== END ==
LOC: M LAB 16:57
PROVIDERS: ATTEND Nurse Practitioner Family
DX: E89.0 Postprocedural hypothyroidism (principal)

== ENCOUNTER → 2021-11-14 | Outpatient (CLI) | payer OTHER ==
[2021-11-14 10:54] LABS: FREE T4 1.03 NG/DL (0.76-1.46); THYROID STIMULATING HORMONE 1.34 uIU/ML (0.358-3.740)
== END ==
LOC: M LAB 09:31
PROVIDERS: ATTEND Nurse Practitioner Family
DX: E89.0 Postprocedural hypothyroidism (principal)

== ENCOUNTER → 2022-09-17 | Outpatient (CLI) | payer OTHER ==
[2022-09-17 11:52] LABS: THYROID STIMULATING HORMONE 0.712 uIU/ML (0.55-4.78)
[2022-09-17 11:58] LABS: FREE T4 0.99 NG/DL (0.89-1.76)
== END ==
LOC: M LAB 10:27
PROVIDERS: ATTEND Nurse Practitioner Family
DX: E89.0 Postprocedural hypothyroidism (principal)

== ENCOUNTER → 2023-06-19 | Outpatient (CLI) | payer OTHER ==
[2023-06-19 13:23] LABS: THYROID STIMULATING HORMONE 0.415 uIU/ML (0.55-4.78)
[2023-06-19 13:24] LABS: FREE T4 1.34 NG/DL (0.89-1.76)
== END ==
LOC: M LAB 11:38
PROVIDERS: ATTEND Nurse Practitioner Family
DX: E89.0 Postprocedural hypothyroidism (principal)

== ENCOUNTER → 2024-06-11 | Outpatient (CLI) | payer OTHER ==
[2024-06-11 11:37] LABS: FREE T4 1.26 NG/DL (0.89-1.76); THYROID STIMULATING HORMONE 0.447 uIU/ML (0.55-4.78)
== END ==
LOC: M LAB 09:48
PROVIDERS: ATTEND Nurse Practitioner Family
DX: E89.0 Postprocedural hypothyroidism (principal)

== ENCOUNTER → 2025-02-23 | Outpatient (REF) | payer OTHER | LOC: M LAB REF 11:40 | PROVIDERS: ATTEND Physician Assistant | DX: J02.9 Acute pharyngitis, unspecified (principal) ==